=== PATIENT | female | born 1930 | race Caucasian/White ===

== ENCOUNTER 2018-07-06 09:23 | Outpatient (CLI) | payer MEDICARE ==
--- NOTE | 2018-07-06 12:11 | HP ---
DATE OF SERVICE: 07/06/2018 HISTORY OF PRESENT ILLNESS: Ms. Chata Rutledge is a very pleasant 88-year-old accompanied by her daug hter who presents [facility] for evaluation of an ulceration of the left medial lower leg. The patient states that the ulceration has been present for approximately two months. She states hawa t she has been cleansing the wound with Dial soap and water and then applying Bactroban ointment foll owed by as per Dr. Francisco. The patient states she then covers the ulceration with Telfa f ollowed by tape. The patient states that she was seen by Dr. Francisco at a second visit and at this t leonardo placed on a course of p.o. antibiotics. The patient was referred to the [facility]ound [facility] by Dr. Rashard delgado. PAST MEDICAL HISTORY: 1. Restless legs syndrome. 2. Hypertension. 3. Nephrolithiasis. 4. History of diverticulosis. PAST SURGICAL HISTORY: 1. Right carpal tunnel release. 2. Rectal surgery in 1979. 3. Cataract surgery in 1989 and 1993. 4. Cholecystectomy. 5. Knee replacement. 6. Hysterectomy. 7. Surgery for stress urinary incontinence and rectocele. 8. Left arthroscopic knee surgery. MEDICATIONS: 1. Meloxicam. 2. Omeprazole. 3. Pravastatin. 4. Lyrica. 5. Amlodipine. 6. Lunesta. 7. Ecotrin. 8. multivitamin. ALLERGIES: No known diagnosed allergies. SOCIAL HISTORY: Negative for tobacco or ETOH use. FAMILY HISTORY: Negative for diabetes mellitus or coronary artery disease. PHYSICAL EXAMINATION: VITAL SIGNS: Temperature 97.6, pulse 73, respirations 19, blood pressure 156/69. GENERAL: An 88-year-old female sitting on chair in examination room in no acute distress. HEENT: Normocephalic, atraumatic. NECK: No nuchal rigidity. CHEST: Clear to auscultation. CARDIAC: Regular rate and rhythm. ABDOMEN: Soft. EXTREMITIES: An ulceration of the left medial lower leg is present which measures approximately 0.2 x 0.2 cm. The wound bed is almost entirely covered by eschar. No serous or purulent drainage is ass ociated with the wound. No cellulitis of the left lower leg is appreciated. No maceration of the sk in of the periwound is noted. A dorsalis pedis pulse and posterior tibial pulse are both palpable on the left. Mild to moderate edema of the left foot and lower leg is present on exam today. NEUROLOGIC: Grossly nonfocal. ASSESSMENT AND PLAN: 1. 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 Webril and 3M Coban 2-layer compression syste m will be applied to the ulceration today. The patient has been instructed to discontinue the compre ssion wrap in one week. She will then dress the wound with Telfa, and an Arpan bandage if the wound is still present. If the wound has healed completely, compression garments have been recommended to th e patient, specifically knee high athletic socks. The patient understands and is in agreement with t he preceding treatment plan. Ms. Rutledge will be discharged from clinic today with followup on an as n eeded basis. No antibiotics will be prescribed today based upon the appearance of the wound. 2. Restless legs syndrome. 3. Hypertension. 4. Nephrolithiasis. 5. History of diverticulosis.
== END 2018-07-06 09:24 | disposition home or self-care (01) ==
LOC: WCC 09:23
PROVIDERS: ATTEND Family Medicine
DX: I83.028 Varicose veins of left lower extremity with ulcer other part of lower leg (principal); L97.829 Non-pressure chronic ulcer of other part of left lower leg with unspecified severity; G25.81 Restless legs syndrome; I10 Essential (primary) hypertension; N20.0 Calculus of kidney; Z87.19 Personal history of other diseases of the digestive system
CPT/HCPCS: 29581; 99203; G0463